=== PATIENT | male | born 2000 | race Two or more races ===

== ENCOUNTER 2020-03-10 22:19 | Emergency (ER) | payer OTHER, SELFPAY ==
[2020-03-10 22:29] VITALS: BMI 39.1
--- NOTE | 2020-03-10 22:30 | XR_ITS ---
PROCEDURE: XR CHEST 2V CLINICAL HISTORY: fever Fever with cough COMPARISON: No exams were available for comparison FINDINGS: The cardiomediastinal silhouette and pulmonary vascularity are within normal limits. There is consolidation in the right lower lobe consistent with pneumonia. No obvious effusion. The left lung is clear infiltrate is also present in the right middle lobe. No acute bony abnormalities. IMPRESSION: Right middle and right lower lobe pneumonia which could be either bacterial or viral Dictated by: Ananda Colmenares MD 03/11/2020 08:56 Electronically signed by Ananda Colmenares MD in [place] 03/11/2020 08:56
[2020-03-10 22:32] VITALS: BP 101/69; PULSE 143; RESP 17; TEMP 38.5; O2SAT 96; BMI 47.5
--- NOTE | 2020-03-10 22:32 | PC.NURSE ---
pt to room. ppe worn by all staff at all times.
--- NOTE | 2020-03-10 22:49 | [facility].EDGENADL ---
ED Disposition Clinical Impression: Rash and nonspecific skin eruption, Hematuria, microscopic Community acquired pneumonia Qualifiers: Laterality: right Lung location: middle lobe of lung Qualified Code(s): J18.9 - Pneumonia, unspecified organism Bilateral otitis media Qualifiers: Otitis media type: unspecified Qualified Code(s): H66.93 - Otitis media, unspecified, bilateral Disposition: Home, Self-Care Condition on Discharge: Good Instructions: DI for Fever (Symptom) -- Adult, DI for Pneumonia -- Adult, DI for Rash, Preventing the Spread of Coronavirus Discharge Instructions Additional Instructions: Take antibiotic as prescribed beginning on Wednesday. Rest and drink plenty of fluids. Tylenol or ibuprofen for fever. Your COVID-19 test results should be available in [address] Butler in his office i on Wednesday for follow-up. Call Wednesday to get appointment time. Return to the emergency room if shortness of breath or intractable vomiting. Prescriptions: levoFLOXacin [Levaquin 500mg tab] 500 mg PO DAILY #10 tab Prescription Printed Referrals: Rg Butler MD [Staff Physician] - - Critical Care Critical Care Time: No Attestation: On 03/10/20, the high probability of a clinically significant, sudden or life threatening deterioration of the following system(s) required my full and direct attention, intervention and personal management. The time I documented below is in addition to time spent performing reported procedures but includes the following listed in this critical care notation. Medical Decision Making - [place] Inquiry Pt receiving controlled substance: No Vital Signs: 03/10/20 22:32 03/11/20 00:00 Temperature 101.3 F H Temperature Source Oral Pulse Rate [Right Brachial] 143 H 115 H Respiratory Rate 17 18 Blood Pressure [Right Arm] 101/69 L 108/62 L Blood Pressure Mean [Right Arm] 79 77 Blood Pressure Source [Right Arm] Automatic Cuff Blood Pressure Position [Right Arm] Sitting 02 Sat by Pulse Oximetry 96 100 Oxygen Delivery Method Room Air Room Air - Lab Data Lab Results 03/10/20 22:30: Influenza Type A Ag Negative, Influenza Type B Ag Negative 03/10/20 22:30: Group A Strep Rapid Negative 03/10/20 22:40: WBC 3.5 L, RBC 5.19, Hgb 14.5, Hct 39.6 L, MCV 76.3 L, MCH 27.9, MCHC 36.5 H, RDW 12.5, Plt Count 174, MPV 8.6, Neut % (Auto) 81.0 H, Lymph % (Auto) 15.0, [place] % (Auto) 3.4, Eos % (Auto) 0.2, Baso % (Auto) 0.4, Neut # (Auto) 2.8, Lymph # (Auto) 0.5 L, [place] # (Auto) 0.1, Eos # (Auto) 0.0, Baso # (Auto) 0.0 03/10/20 22:40: Sodium 128 L, Potassium 3.2 L, Chloride 93 L, Carbon Dioxide 25, Anion Gap 13.2, BUN 12, Creatinine 0.70, Estimated Creat Clear 185, Estimated GFR 144, Est GFR ( Amer) 174, Glucose 124 H, Calcium 8.7, Total Bilirubin 0.5, AST 51, ALT 51, Alkaline Phosphatase 47, Total Protein 7.1, Albumin 3.8, Globulin 3.3 H, Albumin/Globulin Ratio 1.2 03/10/20 22:40: Lactate 0.9 03/10/20 23:25: Chlamy pneumoniae PCR Not detected, Adenovirus (PCR) Not detected, B. pertussis DNA (PCR) Not detected, Coronavirus OC43 (PCR) Not detected, Coronavirus HKU1 (PCR) Not detected, Coronavirus 229E (PCR) Not detected, Coronavirus NL63 (PCR) Not detected, Human Metapneumovir PCR Not detected, Influenza A (H1) PCR Not detected, Influ A (H1N1/09) PCR Not detected, Influenza A (H3) PCR Not detected, Influenza Type A (PCR) Not detected, Influenza Type B (PCR) Not detected, M. pneumoniae (PCR) Not detected, Parainfluenza 1 (PCR) Not detected, Parainfluenza 2 (PCR) Not detected, Parainfluenza 3 (PCR) Not detected, Parainfluenza 4 (PCR) Not detected, RSV (PCR) Not detected, Entero/Rhino (PCR) Not detected 03/10/20 23:37: Urine Color Dk yellow, Urine Appearance Clear, Urine pH 6.0, Ur Specific [place] 1.025, Urine Protein 2+, Urine Glucose (UA) Negative, Urine Ketones Negative, Urine Blood 3+, Urine Nitrate Negative, Urine Bilirubin Negative, Urine Urobilinogen 0.2, Ur Leukocyte Esterase Negative, Urine
[2020-03-10 22:52] LABS: Basophils % 0.4 % (0.1-2.0); Eosinophils % 0.2 % (0.1-12.0); Hematocrit 39.6 % (42.0-52.0); Hemoglobin 14.5 g/dL (14.1-18.0); Lymphocytes # 0.5 K/mm3 (0.7-4.5); Mean Corpuscular HGB Conc 36.5 g/dL (31.8-35.4); Mean Corpuscular Hemoglobin 27.9 pg (27.0-31.2); Mean Corpuscular Volume 76.3 fl (80-94); Mean Platelet Volume 8.6 fl (7.4-10.4); Monocytes # 0.1 K/mm3 (0.1-1.0); Monocytes % 3.4 % (1.7-9.3); Neutrophils # 2.8 K/mm3 (1.8-7.8); Platelet Count 174 K/mm3 (142-424); Red Blood Count 5.19 M/mm3 (4.60-6.20); Red Cell Distribution Width 12.5 % (11.5-17.5); White Blood Count 3.5 K/mm3 (4.5-13.0)
[2020-03-10 22:52] LABS: Strep Scrn Group A (Rapid) Negative (Negative)
[2020-03-10 23:04] LABS: Lactic Acid 0.9 mmol/L (0.7-2.1)
[2020-03-10 23:05] LABS: Alanine Aminotransferase 51 U/L (12-78); Albumin Level 3.8 g/dl (3.5-5.0); Albumin/Globulin Ratio 1.2 (1.1-1.8); Alkaline Phosphatase 47 U/L (38-126); Anion Gap 13.2 mEq/L (5-15); Aspartate Amino Transferase 51 U/L (17-59); Bilirubin,Total 0.5 mg/dl (0.2-1.3); Blood Urea Nitrogen 12 mg/dl (9-20); Calcium 8.7 mg/dl (8.4-10.2); Carbon Dioxide 25 mmol/L (22.0-30.0); Chloride 93 mmol/L (98-107); Creatinine Clearance Estimated 185 mL/min (50-200); Estimated Glomerular Filt Rate 144 ml/min (>60); GFR (African American) 174 ML/MIN (>60); Globulin 3.3 g/dL (1.3-3.2); Glucose 124 mg/dl (74-100); Potassium 3.2 mmoL/L (3.5-5.1); Sodium 128 mmol/L (136-145); Total Protein,Serum 7.1 g/dl (6.3-8.2)
--- NOTE | 2020-03-10 23:19 | PC.NURSE ---
pt to bathroom for urine sample.
[2020-03-10 23:43] LABS: Microscopic, Urine URINE MICROSCOPIC (MICROSCOPIC)
[2020-03-10 23:43] LABS: Adenovirus,PCR Not Detected (NotDetected); Bordetella Pertussis Not Detected (NotDetected); Chlamydophila Pneumoniae, PCR Not Detected (NotDetected); Coronavirus 229E Not Detected (NotDetected); Coronavirus NL63 Not Detected (NotDetected); Coronavirus OC43 Not Detected (NotDetected); Coronovirus HKU1,PCR Not Detected (NotDetected); Human Metapneumovirus Not Detected (NotDetected); Influenza A, PCR Not Detected (NotDetected); Influenza AH1, 2009 Not Detected (NotDetected); Influenza AH1, PCR Not Detected (NotDetected); Influenza AH3,PCR Not Detected (NotDetected); Influenza B, PCR Not Detected (NotDetected); Mycoplasma Pneumoniae, PCR Not Detected (NotDetected); Parainfluenza 1, PCR Not Detected (NotDetected); Parainfluenza 2, PCR Not Detected (NotDetected); Parainfluenza 3, PCR Not Detected (NotDetected); Parainfluenza 4, PCR Not Detected (NotDetected); Respiratory Syncytial Virus Not Detected (NotDetected); Rhinovirus/Enterovirus Not Detected (NotDetected)
[2020-03-10 23:51] LABS: Appearance,Urine CLEAR (Clear); Blood, Urine 3+ (Negative); Color,Urine DK YELLOW (Yellow); Glucose,Urine (UA) Negative (Negative); Ketones,Urine Negative (Negative); Leukocyte Esterase,Urine Negative (Negative); Nitrate,Urine Negative (Negative); Protein,Urine 2+ (Negative); Specific Gravity, Urine 1.025 (1.005-1.030); Urobilinogen,Urine 0.2 EU/dl (0.2)
[2020-03-10 23:56] LABS: Bilirubin,Urine Negative (Negative)
[2020-03-10 23:57] LABS: Amorphous Sediment,Urine Trace /lpf; Yeast,Urine Occasional /lpf
[2020-03-11] VITALS: BP 108/62; PULSE 115; RESP 18; O2SAT 100
[2020-03-11 01:11] VITALS: BP 120/61; PULSE 98; RESP 15; TEMP 37.3; O2SAT 99
[2020-03-13 08:32] LABS: Covid-19 Nasal PCR Sendout Lex NOT DETECTED
--- NOTE | 2020-03-13 09:50 | PC.NURSE ---
Pt's mother notified of negative COVID 19 results.
== END 2020-03-11 01:30 | disposition home or self-care (01) ==
PROVIDERS: Emergency Provider Emergency Medicine
DX: J18.9 Pneumonia, unspecified organism (principal); H66.93 Otitis media, unspecified, bilateral
CPT/HCPCS: 71046; 80053; 81001; 83605; 85025; 87040; 87275; 87276; 87430; 87486; 87581; 87633; 87798; 96365; 96367; 99284; J0456